=== PATIENT | female | born 1990 | race Caucasian/White ===

== ENCOUNTER 2020-10-05 18:30 | Inpatient (IN) | payer OTHER ==
[2020-10-05 20:02] VITALS: BMI 30.8
[2020-10-05] MEDS ORDERED: ZOLPIDEM TARTRATE 5 MG TABLET PO ONE (21:00)
[2020-10-05] MEDS ORDERED: ELECTROLYTE-148 SOLN 1,000 ML IV SCH (21:00)
[2020-10-05] MEDS ORDERED: ZOLPIDEM TARTRATE 5 MG TABLET ONE (23:33)
[2020-10-06 00:22] LABS: BASO % 0.3 % (0-2.0); EOS % 4.3 % (0-4.5); HEMATOCRIT 35.6 % (32.4-45.2); HEMOGLOBIN 12.1 GM/dL (10.7-15.3); LYMPH % 19.7 % (8-40); MCH 32.3 pg (25.7-33.7); MCHC 33.8 g/dl (32.0-36.0); MEAN CELL VOLUME 95.4 fl (80-96); MEAN PLT VOLUME 10.8 fl (7.5-11.1); MONO % 8.9 % (3.8-10.2); NEUT % 66.8 % (42.8-82.8); PLATELET COUNT 155 K/MM3 (134-434); RBC 3.73 M/mm3 (3.60-5.2); RDW 13.1 % (11.6-15.6); WHITE BLOOD COUNT 11.9 K/mm3 (4.0-10.0)
[2020-10-06 00:38] LABS: BLOOD UREA NITROGEN 7.4 mg/dL (7-18); CALCIUM 8.8 mg/dL (8.5-10.1)
[2020-10-06 00:42] LABS: CREATININE 0.7 mg/dL (0.55-1.3)
[2020-10-06 01:09] LABS: INR 1.04 (0.83-1.09); PROTHROMBIN TIME (PATIENT) 12.6 SEC (9.7-13.0)
[2020-10-06 01:12] LABS: ACTIVATED PTT 25.8 SECONDS (25.2-36.5)
[2020-10-06] MEDS ORDERED: OXYTOCIN 30 UNITS in 0.9% NS 30 UNIT/500 ML INFUS.BAG IVPB ONE (06:28)
[2020-10-06] MEDS ORDERED: OXYTOCIN 30 UNITS in 0.9% NS 30 UNIT/500 ML INFUS.BAG IVPB SCH (06:30)
[2020-10-06] MEDS ORDERED: ELECTROLYTE-148 SOLN 1,000 ML IV SCH (08:30)
[2020-10-06] MEDS ORDERED: FENTANYL/BUPIVACAINE/NS/PF - PCEA - 50 ML DISP.SYRIN EP ONE ×2 (14:37→18:20)
[2020-10-06] MEDS ORDERED: PCA PUMP NR ONE ×2 (14:37→19:14)
[2020-10-06] MEDS ORDERED: NALOXONE HCL 0.4 MG/ML VIAL IVPUSH PRN (14:56)
[2020-10-06] MEDS ORDERED: FENTANYL/BUPIVACAINE/NS/PF - PCEA - 50 ML DISP.SYRIN EP SCH (15:00)
[2020-10-06] MEDS ORDERED: LIDO 2%/EPI 1:200000 PRESRVFRE (20 ML SDVIAL) ONE (17:57)
[2020-10-06] MEDS ORDERED: OXYTOCIN 20 UNITS in 0.9% NS 20 UNIT/1,000 ML INFUS.BAG IV ONE ×2 (19:14→22:15)
[2020-10-06] MEDS ORDERED: LIDOCAINE HCL 1% PRESERVATIVE FREE - 30ML VIAL ONE (19:14)
[2020-10-06] MEDS ORDERED: BENZOCAINE 20% 57 GM BOTTLE TP PRN (20:43)
[2020-10-06] MEDS ORDERED: BISACODYL 10 MG SUPP.RECT RC PRN (20:43)
[2020-10-06] MEDS ORDERED: METHYLERGONOVINE MALEATE 0.2 MG/1 ML AMP IM PRN (20:43)
[2020-10-06] MEDS ORDERED: WITCH HAZEL 50% (TUCKS) 40 PAD/JAR PAD TP PRN (20:43)
[2020-10-06] MEDS ORDERED: BENZOCAINE 28 GM HEMORRHOIDAL OINTMENT TP PRN (20:43)
[2020-10-06] MEDS ORDERED: OXYTOCIN 20 UNITS in 0.9% NS 20 UNIT/1,000 ML INFUS.BAG IV SCH (20:45)
[2020-10-07] MEDS: IBUPROFEN 600 MG TABLET (FP) PO PRN ×3 (06:11→21:08)
[2020-10-07] MEDS: ACETAMINOPHEN 325 MG TABLET (FP) PO PRN ×3 (06:12→21:07)
[2020-10-07 06:42] LABS: BASO % 0.3 % (0-2.0); EOS % 1.2 % (0-4.5); HEMATOCRIT 31.2 % (32.4-45.2); HEMOGLOBIN 10.5 GM/dL (10.7-15.3); LYMPH % 13.5 % (8-40); MCH 32.2 pg (25.7-33.7); MCHC 33.6 g/dl (32.0-36.0); MEAN CELL VOLUME 95.6 fl (80-96); MEAN PLT VOLUME 10.6 fl (7.5-11.1); MONO % 10.4 % (3.8-10.2); NEUT % 74.6 % (42.8-82.8); PLATELET COUNT 139 K/MM3 (134-434); RBC 3.27 M/mm3 (3.60-5.2); RDW 13.7 % (11.6-15.6); WHITE BLOOD COUNT 15.5 K/mm3 (4.0-10.0)
[2020-10-07] MEDS: SENNOSIDES/DOCUSATE COMBO (SENNA PLUS) TABLET (UD) PO PRN (14:44)
[2020-10-08] MEDS: SENNOSIDES/DOCUSATE COMBO (SENNA PLUS) TABLET (UD) PO PRN (02:26)
[2020-10-08] MEDS: ACETAMINOPHEN 325 MG TABLET (FP) PO PRN ×2 (02:27→07:42)
[2020-10-08] MEDS: IBUPROFEN 600 MG TABLET (FP) PO PRN ×3 (02:28→13:53)
[2020-10-08 09:13] VITALS: BP 114/75; PULSE 90; TEMP 97.5
== END 2020-10-08 02:00 | disposition home or self-care (01) | DRG 560 ==
LOC: JLDR 18:30 → J3W 10-06 22:39
PROVIDERS: ADMIT Specialist; ATTEND Specialist
PROC: 10E0XZZ Delivery of Products of Conception, External Approach (ICD-10-PCS; principal; 2020-10-06)
DX: O26.893 Other specified pregnancy related conditions, third trimester (principal); L29.9 Pruritus, unspecified; Z3A.37 37 weeks gestation of pregnancy; Z37.0 Single live birth; O69.81X0 Labor and delivery complicated by cord around neck, without compression, not applicable or unspecified
CPT/HCPCS: 36415; 59409; 80048; 85025; 85610; 85730; 86780; 86850; 86900; 86901

== ENCOUNTER 2021-11-05 02:15 | Inpatient (IN) | payer OTHER ==
[~2021-11-05 02:15] MED LIST: DEXTROSE 5%-LACTATED RINGERS 1,000 ML IV SCH
[2021-11-05 04:32] LABS: BASO % 0.5 % (0-2.0); EOS % 3.6 % (0-4.5); HEMATOCRIT 35.5 % (32.4-45.2); LYMPH % 18.8 % (8-40); MCH 30.9 pg (25.7-33.7); MCHC 33.8 g/dl (32.0-36.0); MEAN CELL VOLUME 91.4 fl (80-96); MEAN PLT VOLUME 9.9 fl (7.5-11.1); MONO % 7.1 % (3.8-10.2); PLATELET COUNT 177 10^3/uL (134-434); RBC 3.88 M/mm3 (3.60-5.2); RDW 14.7 % (11.6-15.6); WHITE BLOOD COUNT 10.7 K/mm3 (4.0-10.0)
[2021-11-05 04:43] LABS: INR 1.07 (0.83-1.09); PROTHROMBIN TIME (PATIENT) 12.3 SEC (9.7-13.0)
[2021-11-05 04:46] LABS: ACTIVATED PTT 27.6 SECONDS (25.2-36.5)
[2021-11-05 04:53] LABS: CALCIUM 8.5 mg/dL (8.5-10.1)
[2021-11-05 04:54] LABS: BLOOD UREA NITROGEN 6.9 mg/dL (7-18)
[2021-11-05 04:57] LABS: CREATININE 0.4 mg/dL (0.55-1.3)
[2021-11-05] MEDS ORDERED: PROMETHAZINE HCL 25 MG/1 ML VIAL IVPB ONE (05:00)
[2021-11-05] MEDS ORDERED: BUTORPHANOL TARTRATE 1 MG/ML VIAL IVPB ONE (05:00)
[2021-11-05] MEDS ORDERED: BUTORPHANOL TARTRATE 1 MG/ML VIAL ONE (05:14)
[2021-11-05] MEDS ORDERED: PROMETHAZINE HCL 25 MG/1 ML VIAL ONE (05:14)
[2021-11-05 05:41] VITALS: BMI 31.8
[2021-11-05 05:59] LABS: HIV INTERPRETATION NEGATIVE (NEGATIVE)
[2021-11-05] MEDS ORDERED: ELECTROLYTE-148 SOLN 1,000 ML IV SCH (07:15)
[2021-11-05] MEDS ORDERED: OXYTOCIN 30 UNITS in 0.9% NS 30 UNIT/500 ML INFUS.BAG IVPB SCH (07:15)
[2021-11-05] MEDS ORDERED: FENTANYL/BUPIVACAINE/NS/PF - PCEA - 50 ML DISP.SYRIN EP ONE (07:23)
[2021-11-05] MEDS ORDERED: NALOXONE HCL 0.4 MG/ML VIAL IVPUSH PRN (07:41)
[2021-11-05] MEDS ORDERED: BUPIVACAINE HCL/PF 0.25% (2.5MG/ML) 10 ML VIAL ONE (07:42)
[2021-11-05] MEDS ORDERED: FENTANYL/BUPIVACAINE/NS/PF - PCEA - 50 ML DISP.SYRIN EP SCH (07:45)
[2021-11-05] MEDS ORDERED: OXYTOCIN 30 UNITS in 0.9% NS 30 UNIT/500 ML INFUS.BAG IVPB ONE (08:33)
[2021-11-05] MEDS ORDERED: OXYTOCIN 20 UNITS in 0.9% NS 20 UNIT/1,000 ML INFUS.BAG IV ONE ×2 (12:02→15:32)
[2021-11-05] MEDS ORDERED: LIDOCAINE HCL 1% PRESERVATIVE FREE - 30ML VIAL ONE (12:02)
[2021-11-05] MEDS ORDERED: BENZOCAINE 20% 57 GM BOTTLE TP PRN (13:18)
[2021-11-05] MEDS ORDERED: BISACODYL 10 MG SUPP.RECT RC PRN (13:18)
[2021-11-05] MEDS ORDERED: ACETAMINOPHEN 325 MG TABLET (FP) PO PRN (13:18)
[2021-11-05] MEDS ORDERED: WITCH HAZEL 50% (TUCKS) 40 PAD/JAR PAD TP PRN (13:18)
[2021-11-05] MEDS ORDERED: BENZOCAINE 28 GM HEMORRHOIDAL OINTMENT TP PRN (13:18)
[2021-11-05] MEDS ORDERED: oxyCODONE HCL 5 MG TABLET PO PRN (13:18)
[2021-11-05] MEDS ORDERED: METHYLERGONOVINE MALEATE 0.2 MG/1 ML AMP IM PRN (13:18)
[2021-11-05] MEDS ORDERED: OXYTOCIN 20 UNITS in 0.9% NS 20 UNIT/1,000 ML INFUS.BAG IV SCH (13:30)
[2021-11-05] MEDS: IBUPROFEN 600 MG TABLET (FP) PO PRN (21:21)
[2021-11-06 08:34] LABS: POC NITRAZINE POS
[2021-11-06 09:25] LABS: BASO % 0.5 % (0-2.0); EOS % 3.3 % (0-4.5); HEMATOCRIT 34.2 % (32.4-45.2); HEMOGLOBIN 11.2 GM/dL (10.7-15.3); LYMPH % 22.9 % (8-40); MCH 30.2 pg (25.7-33.7); MCHC 32.8 g/dl (32.0-36.0); MEAN CELL VOLUME 92.1 fl (80-96); MEAN PLT VOLUME 10.3 fl (7.5-11.1); MONO % 7.4 % (3.8-10.2); NEUT % 65.9 % (42.8-82.8); PLATELET COUNT 189 10^3/uL (134-434); RBC 3.71 M/mm3 (3.60-5.2); RDW 14.5 % (11.6-15.6); WHITE BLOOD COUNT 12.1 K/mm3 (4.0-10.0)
[2021-11-06] MEDS: IBUPROFEN 600 MG TABLET (FP) PO PRN ×2 (14:47→20:41)
[2021-11-06] MEDS ORDERED: SENNOSIDES/DOCUSATE COMBO (SENNA PLUS) TABLET (UD) PO PRN (22:00)
[2021-11-07] MEDS: IBUPROFEN 600 MG TABLET (FP) PO PRN ×2 (03:10→09:49)
[2021-11-07 09:06] VITALS: BP 116/81; PULSE 86; TEMP 98
== END 2021-11-07 13:40 | disposition home or self-care (01) | DRG 560 ==
LOC: JLDR 02:15 → J3W 15:35
PROVIDERS: ADMIT Specialist; ATTEND Specialist
PROC: 10E0XZZ Delivery of Products of Conception, External Approach (ICD-10-PCS; principal; 2021-11-05)
DX: O42.02 Full-term premature rupture of membranes, onset of labor within 24 hours of rupture (principal); O70.0 First degree perineal laceration during delivery; Z3A.38 38 weeks gestation of pregnancy; Z37.0 Single live birth
CPT/HCPCS: 36415; 59409; 80048; 83986-QW; 85025; 85610; 85730; 86780; 86850; 86900; 86901; 87389; C9803-CS; U0003; U0005